=== PATIENT | male | born 1955 ===

== ENCOUNTER 2021-12-22 08:08 | Outpatient (CLI) | payer OTHER | END 2021-12-22 08:10 | disposition home or self-care (01) | LOC: RX STUDY 08:08 | PROVIDERS: ATTEND Internal Medicine Gastroenterology | DX: K56.609 Unspecified intestinal obstruction, unspecified as to partial versus complete obstruction (principal); K56.600 Partial intestinal obstruction, unspecified as to cause; C18.9 Malignant neoplasm of colon, unspecified; K57.32 Diverticulitis of large intestine without perforation or abscess without bleeding ==